=== PATIENT | female | born 1955 | race Caucasian/White ===

== ENCOUNTER 2025-01-22 20:02 | Emergency (ER) | payer MEDICARE ==
[2025-01-22] MEDS ORDERED: Sodium Chloride 0.9% 10 ML Syringe FLUSH PRN (20:09)
[2025-01-22 20:18] LABS: BASOPHILS ABSOLUTE AUTO 0.1 x10-3/uL (0.0-0.1); BASOPHILS PERCENT AUTO 0.7 % (0.2-1.5); EOSINOPHILS ABSOLUTE AUTO 0.0 x10-3/uL (0.0-0.8); EOSINOPHILS PERCENT AUTO 0.4 % (0.6-8.1); LYMPHOCYTES ABSOLUTE AUTO 2.3 x10-3/uL (1.0-4.4); LYMPHOCYTES PERCENT AUTO 23.8 % (18.4-52.1); MEAN PLATELET VOLUME 8.9 fL (7.1-12.4); MONOCYTES ABSOLUTE AUTO 0.6 x10-3/uL (0.3-1.0); MONOCYTES PERCENT AUTO 6.7 % (4.4-15.7); NEUTROPHILS ABSOLUTE AUTO 6.7 x10-3/uL (1.5-6.3); NEUTROPHILS PERCENT AUTO 68.4 % (30.8-76.2); PLATELET COUNT,PLT 225 x10(3)uL (151-488); RED BLOOD CELL COUNT 4.64 x10(6)uL (3.60-5.20); RED CELL DISTRIBUTION WIDTH 14.2 % (12.3-16.5); WHITE BLOOD CELL COUNT,WBC 9.7 x10-3/uL (3.0-10.3)
[2025-01-22 20:27] LABS: A/G RATIO 1.0; ALANINE AMINOTRANSFERASE,ALT 24 U/L (12-36); ASPARTATE AMNIOTRANSFERASE,AST 17 IU/L (5-25); BILIRUBIN TOTAL 0.5 mg/dL (0.1-1.3); BLOOD UREA NITROGEN,BUN 33 mg/dL (7-18); CARBON DIOXIDE,CO2 26 mmol/L (21-32); CHLORIDE,CL 102 mmol/L (100-110); ESTIMATED GFR 23 mL/min (>60); GLUCOSE RANDOM 177 mg/dL (80-116); POTASSIUM,K 3.9 mmol/L (3.5-5.3); PROTEIN TOTAL,TP 7.9 g/dL (6.0-8.0); SODIUM,NA 139 mmol/L (135-145)
[2025-01-22 20:28] LABS: CREATININE 2.3 mg/dL (0.55-1.02); EST CRCL DRUG DOSING (CG) 21.06 mL/min
[2025-01-22 20:36] LABS: PRO B-TYPE NATRIUR PEPT,BNPPRO 1948.0 pg/mL (<=125); TSH ULTRASENSITIVE 3.36 IU/mL (0.36-3.74)
[2025-01-22] MEDS: LORazepam 2 MG/ML SDV IVPUSH STA (20:38)
[2025-01-22] MEDS: Acetaminophen/oxyCODONE 325-5 MG Tab PO STA (20:38)
== END 2025-01-23 02:20 | disposition home or self-care (01) ==
LOC: FB.ED 20:02
DX: I48.91 Unspecified atrial fibrillation (principal); N17.9 Acute kidney failure, unspecified; E86.0 Dehydration; R79.89 Other specified abnormal findings of blood chemistry; I10 Essential (primary) hypertension; Z88.8 Allergy status to other drugs, medicaments and biological substances
CPT/HCPCS: 36415; 70450; 80053; 83880; 84443; 84484; 85025; 93005; 93010; 96361; 96365; 96375; 99284; 99285; A9270; J2060; J3490; J7030